=== PATIENT | male | born 1985 | race Caucasian/White ===

== ENCOUNTER 2018-07-23 01:41 | Emergency (ER) | payer SELFPAY ==
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
[2018-07-23 07:23] VITALS: BP 132/78; PULSE 82; RESP 16; TEMP 98.2
--- NOTE | 2018-07-23 08:52 | CT ---
Date of service: 07/23/2018 PROCEDURE: CT HEAD WITHOUT CONTRAST. HISTORY: head injury COMPARISON: None available. TECHNIQUE: Axial computed tomography images were obtained through the head/brain without intravenous contrast. Radiation dose: Total exam DLP = 732 mGy-cm. This CT exam was performed using one or more of the following dose reduction techniques: Automated exposure control, adjustment of the mA and/or kV according to patient size, and/or use of iterative reconstruction technique. FINDINGS: HEMORRHAGE: No intracranial hemorrhage. BRAIN: No mass effect or edema. Mild cerebral atrophy. No evidence of cortical effacement. VENTRICLES: There is severe chronic appearing hydrocephalus involving the lateral ventricles and 3rd ventricle with lesser degree but still dilated 4th ventricle. On the sagittal images the aqueduct appears to be patent. Mild amount of periventricular low density is noted. CALVARIUM: Unremarkable. PARANASAL SINUSES: Unremarkable as visualized. No significant inflammatory changes. MASTOID AIR CELLS: Mastoid air cells are underdeveloped on the left but clear. OTHER FINDINGS: Retro-orbital regions are unremarkable. IMPRESSION: Chronic severe hydrocephalus. Correlation with prior studies would be suggested. No evidence of intracranial hemorrhage or recent infarct. This agrees with preliminary report.
[2018-07-24 21:52] VITALS: O2SAT 96
== END 2018-07-23 06:33 | disposition home or self-care (01) ==
LOC: H.ER 01:41
DX: S09.90XA Unspecified injury of head, initial encounter (principal); S51.811A Laceration without foreign body of right forearm, initial encounter; Y04.0XXA Assault by unarmed brawl or fight, initial encounter; Y92.89 Other specified places as the place of occurrence of the external cause